=== PATIENT | female | born 1955 | race Caucasian/White ===

== ENCOUNTER → 2017-08-20 | Outpatient (CLI) | payer OTHER ==
[~2017-08-20] MED LIST: ADVIN25/60 INH; ALBUAER19 INH; ASPI325T45 PO; CALC-5 PO; CETI10TA10 PO; CHOL100027 PO; CITA40TA12 PO; DILT360C24 PO; FLUT0.15 NAE; LISI-461 PO; NAPR220T40 PO; NIAC500T7 PO; OMEP40CA41 PO
--- NOTE | 2017-08-20 13:54 | MAMMOGRAPHY REPORT ---
BILATERAL DIGITAL SCREENING MAMMOGRAM WITH CAD: 08/20/2017 CLINICAL HISTORY: Routine screening. Patient has no complaints. TECHNIQUE: Current study was also evaluated with a Computer Aided Detection (CAD) system. Bilateral CC and MLO views were obtained. COMPARISON: Comparison is made to exams dated: 08/19/2016 mammogram, 08/16/2015 mammogram, 08/11/2014 m ammogram, 07/13/2013 mammogram, 07/01/2012 mammogram, and 06/23/2011 mammogram - [facility] nter. BREAST COMPOSITION: There are scattered areas of fibroglandular density in both breasts. FINDINGS: No suspicious masses, calcifications, or areas of architectural distortion are noted in ei ther breast. There has been no significant interval change compared to prior exams. Scattered bilate ral benign-appearing calcifications are again noted. Nodular asymmetry in the left subareolar breast on the cc view is stable compared to prior exams included in the 2009 exam. IMPRESSION: ACR BI-RADS CATEGORY 2: BENIGN There is no mammographic evidence of malignancy. A 1 year screening mammogram is recommended. The pa tient will receive written notification of the results. Approximately 10% of breast cancers are not detected with mammography. A negative mammographic report should not delay biopsy if a clinically suggestive mass is present. Teri Smith M.D. /:08/20/2017 07:36:36 Contract Programmer: Griselda ARGUELLES)(Cathy), [facility] letter sent: Normal 1/2 BI-RADS Code: ACR BI-RADS Category 2: Benign
== END | disposition home or self-care (01) ==
LOC: C.MAMM 07:14
PROVIDERS: ATTEND Internal Medicine
DX: Z12.31 Encounter for screening mammogram for malignant neoplasm of breast (principal)

== ENCOUNTER 2018-03-22 09:32 | Emergency (ER) | payer OTHER ==
[~2018-03-22] VITALS: Ht 170.2 cm; Wt 81.6 kg
[~2018-03-22 09:32] MED LIST changes: +ASPECOTC PO; -ASPI325T45 PO
[2018-03-22 09:37] VITALS: TEMP 36.7; Ht 170.2 cm; Wt 81.6 kg
[2018-03-22] MEDS ORDERED: LIDOCAINE 1% BUFFERED INJ 5 ML VIAL INFIL STA (09:55)
[2018-03-22] MEDS ORDERED: MONT1TAB3 PO (09:58)
[2018-03-22] MEDS ORDERED: TAMO20TA9 PO (09:58)
[2018-03-22] MEDS ORDERED: OMEG10007 PO (09:58)
[2018-03-22] MEDS ORDERED: VNTHFA/IN INH (09:59)
--- NOTE | 2018-03-22 10:27 | DIAGNOSTIC IMAGING REPORT ---
LEFT INDEX FINGER 3 VIEWS CLINICAL HISTORY: Left index finger status post pain. Dog bite. COMPARISON: None. DISCUSSION: No acute fractures or dislocations are visualized. There is a soft tissue injury at the level of the distal phalanx. No radiopaque foreign bodies are noted. 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 IMPRESSION: 1. Soft tissue injury 2. No acute fractures or subluxations. Electronically signed by: Srini Alvares M.D. 03/22/2018 10:26 AM Dictated Date/Time: 03/22/2018 10:25 AM
[2018-03-22 11:04] VITALS: BP 127/72; PULSE 81; O2SAT 95
[2018-03-22] MEDS ORDERED: AMOX875T PO (11:08)
--- NOTE | 2018-03-22 11:08 | EMERGENCY ROOM VISIT NOTE ---
ED Visit Note First contact with patient: 09:39 Chief Complaint: "Dog bite" History of Present Illness: This patient is a 63-year-old female who presents to the Emergency Department via private vehicle accompanied by for evaluation of their left second digit walking her dog when the dog found laceration. Patient sustained the laceration while a chicken bone in a local parking lot and then subsequently bit her finger. They report a moderate amount of bleeding initially. They deny did note initial numbness/tingling in the finger of which has subsided and now there is just pain of which she rates as a 2/10 and sustained the bite when she tried to remove the chicken wing/bone from the dog. They report no decreased range of motion of the affected digit. Patient's Tetanus status is currently up-to-date. Medications: As noted below Allergies: As noted below PMH: Non contributory SHx: Pt. lives locally ROS: All pertinent positive and negative review of systems are appropriately documented in the History of Present Illness. Physical Exam: VITAL SIGNS - Vital signs and nursing notes were reviewed. Stable. GENERAL - 63-year-old female appearing her stated age who is in no acute distress. Communicates well with provider and answers questions appropriately. SKIN - There is a 2.5 cm and 1.0 cm long laceration noted to the finger pad of the left 2nd digit. The edges gape apart with traction. No foreign bodies appreciated. Upon further examination there are no deep structures including vessel, tendon, or bony structures appreciated. There is no active bleeding noted. MUSCULOSKELETAL - Laceration as described above. +5/5 strength appreciated of the affected digit. Full range of motion of the affected digit. NEUROLOGIC - Spinothalamic tract was found to be intact with ability to discriminate sharp versus dull sensation. No sensory defects of the dorsal column were appreciated utilizing light touch for evaluation. VASCULAR - Capillary refill was brisk. IMAGING: [~ rep ct add3]] LEFT INDEX FINGER 3 VIEWS CLINICAL HISTORY: Left index finger status post pain. Dog bite. COMPARISON: None. DISCUSSION: No acute fractures or dislocations are visualized. There is a soft tissue injury at the level of the distal phalanx. No radiopaque foreign bodies are noted. 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 IMPRESSION: 1. Soft tissue injury 2. No acute fractures or subluxations. Electronically signed by: Srini Alvares M.D. 03/22/2018 10:26 AM Dictated Date/Time: 03/22/2018 10:25 AM ED Course: Patient was seen and evaluated by myself. Risks and benefits of performing primary wound closure versus no repair were discussed with the patient who verbalizes understanding. Verbal consent was obtained prior to performing the procedure. 3 cc of 1% buffered lidocaine was used to perform a digital block of the left second digit. The wound was cleansed and prepped in the typical sterile fashion utilizing normal saline and Betadine. The wound was sterilely draped. Once proper anesthetization was established, the wound was further examined and demonstrated no retained foreign body of which was also verified by radiograph. The wound was copiously irrigated with normal saline and Betadine. The wound was closed using 6 simple, 5-0 nylon sutures with the wound edges being well approximated. Patient tolerated the procedure well. No complications were met. The wound was cleansed and dressed with a Bacitracin dressing. A metal splint was applied to the finger for comfort. Augmentin for wound prophylaxis. Patient educated on worrisome symptoms for return visit to the Emergency Department. Patient discharged to home in good condition. In the evaluation and treatment of this patient, the following differential diagnoses were considered: Finger Fracture, Finger Dislocation, Finger Sprain, Finger Contusion, Jersey Finger, or Mallet Finger. Current/Historical Medications Scheduled Albuterol Hfa (Ventolin Hfa), 2 PUFFS INH UD Amoxicillin & Pot Clavulanate (Augmentin 875-125 mg), 1 TAB PO BID Cetirizine Hcl (Zyrtec), 10 MG PO DAILY Cholecalciferol (Vitamin D 1000 Unit), 1,000 INTER.UNIT PO DAILY Citalopram Hydrobromide (Celexa), 40 MG PO DAILY Diltiazem Hcl Extended Release (Diltiazem Hcl), 360 MG PO DAILY Fish Oil ([place]-3), 1 CAP PO BID Fluticasone Prop/Salmeterol (Advair Diskus 250/50 60 Dose), 1 PUFF INH BID Fluticasone Propionate (Nasal) (Flonase Allergy Relief), 2 SPRAYS [place]WAL[place] DAILY Lisinopril (Zestril), 10 MG PO DAILY Montelukast Sodium (Singulair), 10 MG PO HS Omeprazole (Prilosec), 40 MG PO DAILY Tamoxifen (Nolvadex), 20 MG PO DAILY Allergies Coded Allergies: Meperidine (Unverified Allergy, Unknown, HIVES, 03/22/18) Metoclopramide (Unverified Allergy, Unknown, HIVES, 03/22/18) Vital Signs Date Time Temp Pulse Resp B/P (MAP) Pulse Ox O2 Delivery O2 Flow Rate FiO2 03/22/18 11:04 81 18 127/72 95 Room Air 03/22/18 09:37 36.7 84 18 140/87 94 Room Air Medications Administered Medications (Trade) Dose Ordered Sig/Macario Route Start Time Stop Time Status Last Admin Dose Admin Lidocaine HCl (Buffered Lidocaine 1% Inj) 20 ml ONE STAT INFIL 03/22/18 09:55 03/22/18 09:56 DC 03/22/18 09:55 20 ML Departure Information Impression Primary Impression: Dog bite Dispostion Home / Self-Care Condition GOOD Prescriptions Amoxicillin & Pot Clavulanate (Augmentin 875-125 mg) 1 Tab Tab 1 TAB PO BID for 7 Days, #14 TAB Prov: Wayne Orellana PA-C 03/22/18 Referrals Damian Marquez D.O. (PCP) Patient Instructions My [facility] Additional Instructions You have received 6 sutures on your finger. These sutures are NOT dissolvable and WILL need to be removed by a health care provider in 14 days. You can return to the Emergency Department or contact your Primary Care Provider to have the sutures removed. Please wear the splint for comfort until the sutures are removed. Augmentin 1 tablet every 12 hours for 7 days to help prevent infection. Proper wound care is essential for adequate wound healing and infection prevention. You can shower and clean the wound with soap and water. Do not scour over the wound, pat dry with a towel. Do not submerse the wound (i.e. bathe or dish wash) until the sutures have been removed. You can use an antibiotic ointment with a dressing over the wound for the next 3-4 days. After this time you may leave the wound dry and open to the air. If crust develops over the wound you can use a Q-tip to apply a 1:1 peroxide:water solution to clean the wound. Look for signs of infection of the wound including: increased pain, swelling, foul discharge, streaking, or increased temperature. If any of these are noticed you should return to the Emergency Department for further assessment and treatment. As with any laceration you may have received nerve damage to the surrounding tissues. This damage may or may not be permanent. You should keep the area covered with sunscreen for the first 6 months to 1 year when at risk for exposure to help minimize scarring. You can also use scar reducing creams or Vitamin E oil to help minimize scarring. For pain control, you can use the following [id number]-kerkqua medicines (if >12 yo): - Regular strength (325mg/tab) Tylenol (acetaminophen) 2 tabs every 4-6 hours as needed. Do not exceed 12 tablets in a 24 hour period. Avoid taking more than 3 grams (3000 mg) of Tylenol per day. This includes any other sources of acetaminophen you may take on a regular basis. - Regular strength (200 mg/tab) Advil (ibuprofen) 1-2 tabs every 4-6 hours as needed. Do not exceed a dose of 3200 mg per day. Return to the emergency department if your symptoms worsen despite treatment course outlined above.
== END 2018-03-22 11:23 | disposition home or self-care (01) ==
LOC: C.EDB 09:34 → C.EDA 11:23
DX: S61.251A Open bite of left index finger without damage to nail, initial encounter (principal); W54.0XXA Bitten by dog, initial encounter; Y92.481 Parking lot as the place of occurrence of the external cause; Z79.899 Other long term (current) drug therapy; Z88.5 Allergy status to narcotic agent; Z88.8 Allergy status to other drugs, medicaments and biological substances